=== PATIENT | female | born 1995 | race Two or more races ===

== ENCOUNTER 2024-01-07 22:27 | Emergency (ER) | payer OTHER ==
[~2024-01-07] VITALS: Ht 152.4 cm; Wt 60.0 kg
[2024-01-08 00:49] LABS: Urine Bacteria NONE SEEN /hpf (None Seen); Urine Blood Negative /uL (Negative); Urine Clarity Clear (Clear); Urine Color Yellow (Yellow); Urine Protein, UAD Negative (Negative); Urine Urobilinogen Normal (Negative); Urine WBC 1 /hpf (0 - 5)
[2024-01-08] MEDS: ACETAMINOPHEN 325 MG TAB PO ONE (00:52)
[2024-01-08 00:55] VITALS: BP 107/70; PULSE 73; RESP 17; O2SAT 99
[2024-01-08] MEDS ORDERED: ACET500T58 PO (00:56)
[2024-01-08 01:38] LABS: Amphetamine Screen, Urine Neg (NEGATIVE); Barbiturate Scree,Urine Neg (NEGATIVE); Benzodiazephine Screen, Urine Neg (NEGATIVE); Cannabinoid Screen, Urine Pos (NEGATIVE); Cocaine Screen, Urine Neg (NEGATIVE); Opiate Scree,Urine Neg (NEGATIVE); Phencyclidine Screen, Urine Neg (NEGATIVE)
== END 2024-01-08 01:59 | disposition home or self-care (01) ==
LOC: ER 22:27
DX: O26.891 Other specified pregnancy related conditions, first trimester (principal); G44.209 Tension-type headache, unspecified, not intractable; F12.10 Cannabis abuse, uncomplicated; Z3A.10 10 weeks gestation of pregnancy; Z79.899 Other long term (current) drug therapy
CPT/HCPCS: 80307; 81001; 81025

== ENCOUNTER 2024-03-25 16:05 | Observation (INO) | payer MEDICAID ==
[~2024-03-25 16:05] MED LIST: ACET500T58 PO
== END 2024-03-25 18:02 | disposition home or self-care (01) ==
LOC: UNDOADMOB 16:05 → LDRP 16:05 → UNDODISOB 18:02
PROVIDERS: ADMIT Obstetrics & Gynecology; ATTEND Obstetrics & Gynecology
DX: O26.852 Spotting complicating pregnancy, second trimester (principal); O46.92 Antepartum hemorrhage, unspecified, second trimester; Z3A.20 20 weeks gestation of pregnancy
CPT/HCPCS: 76805; 81002; 94760; G0378

== ENCOUNTER 2024-04-10 19:53 | Observation (INO) | payer MEDICAID ==
[~2024-04-10] VITALS: Ht 152.4 cm; Wt 61.2 kg
[2024-04-10] MEDS ORDERED: PREN-96 PO (20:51)
== END 2024-04-10 21:41 | disposition home or self-care (01) ==
LOC: LDRP 19:53
PROVIDERS: ADMIT Obstetrics & Gynecology; ATTEND Obstetrics & Gynecology
DX: O99.612 Diseases of the digestive system complicating pregnancy, second trimester (principal); K42.9 Umbilical hernia without obstruction or gangrene; Z3A.23 23 weeks gestation of pregnancy
CPT/HCPCS: 59025; 81002; 94760; G0378

== ENCOUNTER 2024-07-28 11:39 | Observation (INO) | payer MEDICAID ==
[~2024-07-28 11:39] MED LIST changes: +PREN-96 PO
== END 2024-07-28 13:50 | disposition home or self-care (01) ==
LOC: LDRP 11:39
PROVIDERS: ADMIT Obstetrics & Gynecology; ATTEND Obstetrics & Gynecology
DX: O48.0 Post-term pregnancy (principal); Z3A.38 38 weeks gestation of pregnancy; Z79.899 Other long term (current) drug therapy
CPT/HCPCS: 59025; 81002; G0378

== ENCOUNTER 2024-08-06 10:59 | Observation (INO) | payer MEDICAID ==
[2024-08-06 13:36] LABS: Fern Testing Negative
== END 2024-08-06 15:24 | disposition home or self-care (01) ==
LOC: LDRP 10:59 → UNDOADMOB 10:59 → LDRP 11:09
PROVIDERS: ADMIT Obstetrics & Gynecology; ATTEND Obstetrics & Gynecology
DX: O60.03 Preterm labor without delivery, third trimester (principal); Z3A.39 39 weeks gestation of pregnancy; Z79.899 Other long term (current) drug therapy
CPT/HCPCS: 59025; 76818; 81002; 84112; 94760; 96360; G0378; Q0114

== ENCOUNTER 2024-08-08 07:45 | Inpatient (IN) | payer MEDICAID ==
[~2024-08-08] VITALS: Ht 152.4 cm; Wt 65.8 kg
[2024-08-08] MEDS ORDERED: LIDOCAINE 2%HCL (LOCAL ANESTH.) INJ 20ML MDV IJ PRN (09:45)
[2024-08-08] MEDS ORDERED: BUTORPHANOL TARTRATE 2 MG/1 ML VIAL IV PRN ×2 (09:45)
[2024-08-08] MEDS ORDERED: LACT. RINGERS/OXYTOCIN 20UNITS 500 ML IV ONE (10:15)
[2024-08-08 11:16] LABS: Basophils # (auto) 0 10 ^3/uL (0-0.2); Basophils % (auto) 0.6 % (0.0-2.0); Eosinophils # (auto) 0.1 10 ^3/uL (0-0.8); Eosinophils % (auto) 1.3 % (0.0-7.0); Hemoglobin 9.9 g/dL (12.2-16.2); Lymphocytes # (auto) 1.9 10 ^3/uL (0.4-5.4); Mean Corpuscular Hemoglobin 28.3 pg (28.0-32.0); Mean Corpuscular Volume 85.8 fL (80.0-100.0); Monocytes # (auto) 0.6 10 ^3/uL (0-1.3); Monocytes % (auto) 7.8 % (0.0-12.0); Neutrophils # (auto) 4.8 10 ^3/uL (1.6-8.6); Neutrophils % (auto) 64.3 % (37.0-80.0); Platelet Count (auto) 302 10^3/uL (140-450); White Blood Cell 7.5 10^3/uL (4.4-10.8)
[2024-08-08 11:33] LABS: Amphetamine Screen, Urine Neg (NEGATIVE)
[2024-08-08 11:34] LABS: Barbiturate Scree,Urine Neg (NEGATIVE); Benzodiazephine Screen, Urine Neg (NEGATIVE); Cannabinoid Screen, Urine Neg (NEGATIVE); Cocaine Screen, Urine Neg (NEGATIVE); Opiate Scree,Urine Neg (NEGATIVE); Phencyclidine Screen, Urine Neg (NEGATIVE)
[2024-08-08 11:36] LABS: Albumin 3.5 g/dL (3.2-4.8); Alkaline Phosphatase 123 U/L (46-116); Anion Gap 9 (5-15); Aspartate Aminotransferase 12 U/L (13-40); Bilirubin, Total 0.5 mg/dL (0.2-1.0); Calcium 8.7 mg/dL (8.7-10.4); Carbon Dioxide 21 mmol/L (20-31); Chloride 110 mmol/L (98-107); Glucose 100 mg/dL (74-106); INR 0.99 (0.9-1.15); Partial Thromboplastin Time 27.1 SEC (24.5-34.5); Potassium 3.3 mmol/L (3.5-5.1); Prothrombin Time 10.5 sec (9.3-11.8); Sodium 140 mmol/L (136-145); Total Protein 6.2 g/dL (5.7-8.2)
[2024-08-08 11:37] LABS: Alanine Aminotransferase < 9 U/L (7-40); BUN/Creatinine Ratio 7.4 (10.0-20.0); Blood Urea Nitrogen < 5 mg/dL (9-23)
[2024-08-08 11:45] LABS: Urine Bacteria FEW /hpf (None Seen); Urine Blood Negative /uL (Negative); Urine Clarity Clear (Clear); Urine Color Light-Yellow (Yellow); Urine Protein, UAD Negative (Negative); Urine Specific Gravity 1.006 (1.001-1.035); Urine Urobilinogen Normal (Negative); Urine WBC 2 /hpf (0 - 5)
[2024-08-08] MEDS: miSOPROStol 50 MCG per PRE-CUT 1/2 TAB PO PRN (12:01)
[2024-08-08] MEDS: CLINDAMYCIN 600MG IV 50 ML IV SCH (12:52)
[2024-08-08] MEDS: LACTATED RINGER'S 1,000 ML IV SCH (15:08)
[2024-08-08] MEDS: POTASSIUM CHL 20 Meq TABLET PO ONE (15:12)
[2024-08-08] MEDS: PHISODERM TOP SOLN 240ML BTL TOP PRN (15:12)
[2024-08-08] MEDS: DERMOPLAST 60ML BOTTLE TOP PRN (15:12)
[2024-08-08] MEDS: WITCH HAZEL-GLYCERIN PAD TOP PRN (15:12)
[2024-08-08] MEDS: fentaNYL CITRATE 100 MCG/2 ML VL IV ONE ×2 (17:00→18:17)
[2024-08-08] MEDS: NALOXONE HCL 0.4 MG/ML VIAL IV ONE (17:00)
[2024-08-08] MEDS ORDERED: ePHEDrine SULFATE 50 MG/ML AMP IV ONE (17:00)
[2024-08-08] MEDS: LIDOCAINE HCL 2 %PF INJ 10ML AMP IJ ONE ×2 (17:15→17:45)
[2024-08-08] MEDS ORDERED: LACT. RINGERS/OXYTOCIN 20UNITS 1,000 ML IV SCH (17:30)
[2024-08-08] MEDS ORDERED: NALOXONE HCL 0.4 MG/ML VIAL IV ONE (17:45)
[2024-08-08] MEDS: ePHEDrine SULFATE 50 MG/ML AMP IV ONE (17:45)
[2024-08-08] MEDS ORDERED: ROPIVACAINE HCL 200 ML ONE (18:05)
[2024-08-08] MEDS: ROPIVACAINE HCL 200 ML EPI ONE (18:41)
[2024-08-08] MEDS ORDERED: diphenhdrAMINE HCL 50 MG/1 ML VL IV PRN (19:15)
[2024-08-08] MEDS ORDERED: CARBOPROST TROMETHAMINE 250 MCG/1ML VIAL IM PRN (22:00)
[2024-08-08] MEDS ORDERED: miSOPROStol 100 mcg TAB SL PRN (22:00)
[2024-08-08] MEDS ORDERED: TRANEXAMIC ACID 1,000 MG in SODIUM CHL 0.9% 100 ML IV ONE (22:00)
[2024-08-08] MEDS ORDERED: miSOPROStol 100 mcg TAB PR PRN (22:00)
[2024-08-08] MEDS ORDERED: METHYLERGONOVINE MALEATE 0.2 MG/ML AMP IM PRN (22:00)
[2024-08-08] MEDS ORDERED: DIPHENOXYLATE W/ATROPINE 2.5 MG TAB PO SCH (22:00)
[2024-08-09] MEDS: IBUPROFEN 800 MG TAB PO SCH
[2024-08-09] MEDS: LACT. RINGERS/OXYTOCIN 20UNITS 500 ML IV ONE (00:29)
[2024-08-09 03:00] VITALS: BP 113/70; PULSE 80; RESP 16; TEMP 98.6; O2SAT 98
[2024-08-09] MEDS ORDERED: ACETAMINOPHEN 325 MG TAB PO PRN (03:00)
[2024-08-09] MEDS ORDERED: ONDANSETRON ODT 4 MG TAB PO PRN (03:00)
[2024-08-09] MEDS ORDERED: LIDOCAINE 2%HCL (LOCAL ANESTH.) INJ 10ml MDV ONE (06:42)
[2024-08-09] MEDS ORDERED: LACT. RINGERS/OXYTOCIN 20UNITS 0 ML IV ONE (06:42)
[2024-08-09 07:00] VITALS: BP 95/55; PULSE 67; RESP 18; TEMP 97.8; O2SAT 100
[2024-08-09 07:07] LABS: RPR Non Reactive (Non Reactive)
[2024-08-09 11:30] VITALS: BP 92/54; PULSE 73; RESP 16; TEMP 97.7; O2SAT 99
[2024-08-09 15:30] VITALS: BP 103/61; PULSE 60; RESP 16; TEMP 98.3; O2SAT 99
[2024-08-09 19:00] VITALS: BP 99/51; PULSE 82; RESP 16; TEMP 98.3; O2SAT 98
[2024-08-09 23:21] VITALS: BP 103/65; PULSE 75; RESP 16; TEMP 98.6; O2SAT 98
[2024-08-10 03:00] VITALS: BP 96/56; PULSE 75; RESP 16; TEMP 98.1; O2SAT 97
[2024-08-10 07:00] VITALS: BP 102/62; PULSE 84; RESP 18; TEMP 98.2; O2SAT 98
[2024-08-10 11:03] VITALS: BP 102/61; PULSE 74; RESP 18; TEMP 98.6; O2SAT 98
[2024-08-10 15:00] VITALS: BP 100/64; PULSE 72; RESP 18; TEMP 98; O2SAT 98
[2024-08-10 19:00] VITALS: BP 102/64; PULSE 73; RESP 16; TEMP 97.7; O2SAT 98
[2024-08-10 23:00] VITALS: BP 97/52; PULSE 61; RESP 16; TEMP 98; O2SAT 100
[2024-08-11 03:00] VITALS: BP 102/61; PULSE 69; RESP 16; TEMP 98.5; O2SAT 98
[2024-08-11 07:02] VITALS: BP 101/61; PULSE 67; RESP 15; TEMP 98.8; O2SAT 97
[2024-08-11 11:06] LABS: Treponema Pallidum Ab LC Non Reactive (Non Reactive)
== END 2024-08-11 12:00 | disposition home or self-care (01) | DRG 560 ==
LOC: LDRP 07:45 → OBSVTOIN 09:42 → LDRP 11:00
PROVIDERS: ADMIT Obstetrics & Gynecology; ATTEND Obstetrics & Gynecology
PROC: 10E0XZZ Delivery of Products of Conception, External Approach (ICD-10-PCS; principal; 2024-08-09)
PROC: 3E0R3BZ Introduction of Anesthetic Agent into Spinal Canal, Percutaneous Approach (ICD-10-PCS; 2024-08-09)
PROC: 00HU33Z Insertion of Infusion Device into Spinal Canal, Percutaneous Approach (ICD-10-PCS; 2024-08-09)
PROC: 3E0DXGC Introduction of Other Therapeutic Substance into Mouth and Pharynx, External Approach (ICD-10-PCS; 2024-08-09)
DX: O48.0 Post-term pregnancy (principal); Z37.0 Single live birth; O69.81X0 Labor and delivery complicated by cord around neck, without compression, not applicable or unspecified; Z3A.40 40 weeks gestation of pregnancy; Z88.0 Allergy status to penicillin; O90.81 Anemia of the puerperium
CPT/HCPCS: 36415; 59025; 59409; 62282; 76818; 80053; 80307; 81001; 81002; 85025; 85610; 85730; 86592; 86780; 86803; 86850; 86900; 86901; 94760; 96360; 96361; 96365; 96366; G0378; J2003; J2590; J3490

== ENCOUNTER 2025-03-18 06:20 | Day surgery (SDC) | payer MEDICAID ==
[2025-03-16 12:16] LABS: Basophils # (auto) 0.1 10 ^3/uL (0-0.2); Eosinophils # (auto) 0.1 10 ^3/uL (0-0.8); Eosinophils % (auto) 2.1 % (0.0-7.0); Hemoglobin 13.4 g/dL (12.2-16.2); Lymphocytes # (auto) 2.3 10 ^3/uL (0.4-5.4); Lymphocytes % (auto) 32.5 % (10.0-50.0); Mean Corpuscular Hemoglobin 30.5 pg (28.0-32.0); Mean Corpuscular Hgb Conc. 33.6 g/dL (32.0-36.0); Mean Corpuscular Volume 90.9 fL (80.0-100.0); Monocytes # (auto) 0.7 10 ^3/uL (0-1.3); Monocytes % (auto) 9.4 % (0.0-12.0); Neutrophils # (auto) 3.9 10 ^3/uL (1.6-8.6); Nucleated Red Blood Cells % 0.1 %; Platelet Count (auto) 349 10^3/uL (140-450); Red Cell Distribution Width 13.4 % (11.8-14.3); White Blood Cell 7.1 10^3/uL (4.4-10.8)
[2025-03-16 12:29] LABS: INR 1.01 (0.9-1.15); Partial Thromboplastin Time 30.4 SEC (24.5-34.5); Prothrombin Time 10.7 sec (9.3-11.8)
[2025-03-16 12:44] LABS: Alanine Aminotransferase 24 U/L (7-40); Albumin 4.7 g/dL (3.2-4.8); Alkaline Phosphatase 78 U/L (46-116); Anion Gap 8 (5-15); Aspartate Aminotransferase 22 U/L (13-40); BUN/Creatinine Ratio 11.3 (10.0-20.0); Bilirubin, Total 0.7 mg/dL (0.2-1.0); Blood Urea Nitrogen 8 mg/dL (9-23); Calcium 9.8 mg/dL (8.7-10.4); Carbon Dioxide 25 mmol/L (20-31); Chloride 103 mmol/L (98-107); Glucose 96 mg/dL (74-106); Potassium 3.9 mmol/L (3.5-5.1); Sodium 136 mmol/L (136-145); Total Protein 7.7 g/dL (5.7-8.2)
[~2025-03-18] VITALS: Ht 152.4 cm; Wt 65.8 kg
[2025-03-18] MEDS ORDERED: CELECOXIB 100 MG CAP ONE (06:45)
[2025-03-18] MEDS ORDERED: GABAPENTIN 300 MG CAP ONE (06:45)
[2025-03-18] MEDS ORDERED: GLYCOPYRROLATE 0.2 MG/ML 1ML VIAL ONE (06:51)
[2025-03-18] MEDS ORDERED: PROPOFOL 10 MG/ML 20 ML IV ONE (06:51)
[2025-03-18] MEDS ORDERED: ROCURONIUM 10MG/ML 10ML VIAL IV ONE (06:51)
[2025-03-18] MEDS ORDERED: DexAMETHasone SOD PHOS 10MG/1ML VIAL INJ ONE (06:52)
[2025-03-18] MEDS ORDERED: KETOROLAC TROMETH 30 MG/ML 1ML VIAL ONE (06:52)
[2025-03-18] MEDS ORDERED: LIDOCAINE 1% INJ PF 5ML AMP ONE (06:52)
[2025-03-18] MEDS ORDERED: LIDOCAINE HCL 2% TOP JELLY 5ML TOP ONE (06:52)
[2025-03-18] MEDS ORDERED: SUGAMMADEX 200mg/2ml Vial (100MG/ML) IV ONE (06:52)
[2025-03-18] MEDS ORDERED: ONDANSETRON HCL 4 MG/2 ML VIAL ONE (06:52)
[2025-03-18] MEDS ORDERED: LIDOCAINE 2% (LOCAL ANESTH.) PF 5ml SDV ONE (06:52)
[2025-03-18] MEDS ORDERED: fentaNYL CITRATE 100 MCG/2 ML VL ONE (06:54)
[2025-03-18] MEDS ORDERED: KETAMINE 50mg/ML 1ml syringe ONE (06:54)
[2025-03-18] MEDS: GABAPENTIN 300 MG CAP PO ONE (07:00)
[2025-03-18] MEDS: CELECOXIB 100 MG CAP PO ONE (07:00)
[2025-03-18] MEDS: ACETAMINOPHEN IV 1000 MG/100ML (10MG/ML) IV ONE (07:00)
[2025-03-18] MEDS: ACETAMINOPHEN IV 100 ML IV ONE (07:20)
[2025-03-18] MEDS: levoFLOXacin 500MG 100 ML IV ONE (07:23)
[2025-03-18] MEDS ORDERED: PHENYLEPHRINE HCL 10 MG/ML VL ONE (07:39)
[2025-03-18] MEDS ORDERED: SODIUM CHLORIDE LOCK 10 ML ONE (07:39)
[2025-03-18] MEDS: BUPIVACAINE 0.25% INJ 50ML VIAL ONE (07:48)
[2025-03-18] MEDS: LIDOCAINE W/ EPINEPHRINE 1% 20ML VIAL ONE (07:48)
[2025-03-18 08:20] VITALS: PULSE 125; RESP 13; TEMP 98.5; O2SAT 100
[2025-03-18] MEDS ORDERED: fentaNYL CITRATE 100 MCG/2 ML VL IV PRN (08:30)
[2025-03-18] MEDS ORDERED: HYDROmorphone HCL 2 MG/ML VL/or syr IV PRN (08:30)
[2025-03-18] MEDS ORDERED: NALOXONE HCL 0.4 MG/ML VIAL IV PRN (08:30)
[2025-03-18] MEDS ORDERED: ePHEDrine SULFATE 50 MG/ML AMP IV PRN (08:30)
[2025-03-18] MEDS ORDERED: FLUMAZENIL 0.1 MG/ML INJ 10ML MDV IV PRN (08:30)
[2025-03-18] MEDS ORDERED: hydrALAZINE HCL 20 MG/ML VL IV PRN (08:30)
[2025-03-18] MEDS: ONDANSETRON HCL 4 MG/2 ML VIAL IV PRN (09:22)
[2025-03-18] MEDS: oxyCODONE HCL 5MG TAB PO PRN (09:23)
[2025-03-18 09:35] VITALS: BP 110/72; PULSE 73; RESP 13; O2SAT 97
--- NOTE | 2025-03-18 09:52 | DVHOP ---
DATE OF SURGERY: 03/18/2025 PREOPERATIVE DIAGNOSIS: Umbilical hernia. POSTOPERATIVE DIAGNOSIS: Umbilical hernia. SURGEON: Derrick Daly MD. ANESTHESIA: General. ANESTHESIOLOGIST: Carson Gonzalez. PROCEDURE: Repair of umbilical hernia. DESCRIPTION OF PROCEDURE: Under adequate anesthesia, with the patient's skin prepped and draped, infiltrated with 0.25% Marcaine, 0.5% Xylocaine with epinephrine mixture, an incision was made in a circumumbilical fashion, deepened with electrocautery. The hernia consisted of incarcerated omentum, which was mobilized sufficiently in order to reduce it into the peritoneal cavity and the fascia was under swept with a dissecting finger to minimize the potential for any injury to the underlying viscera. The fascial defect, which measured approximately 3 cm in diameter, was then closed using nonabsorbable sutures in a far-near, near-far fashion. Incision was irrigated. Irrigant was aspirated. Hemostasis was meticulously accomplished and closure accomplished utilizing 2-0 Monocryl sutures, Dermabond, glue and Steri-Strips. The patient remained stable throughout the procedure, left the operating room following an accurate needle and sponge count. Derrick Daly MD PF/EMILEE/LYLE TID: [id number] RECEIPT: [id number]
== END 2025-03-18 09:50 | disposition home or self-care (01) ==
LOC: SUR 06:20
PROVIDERS: ATTEND Surgery
DX: K42.0 Umbilical hernia with obstruction, without gangrene (principal); E66.3 Overweight; Z68.28 Body mass index [BMI] 28.0-28.9, adult; Z79.899 Other long term (current) drug therapy; Z87.891 Personal history of nicotine dependence; Z88.0 Allergy status to penicillin
CPT/HCPCS: 36415; 49594; 80053; 84702; 85025; 85610; 85730; 86850; 86900; 86901; 88302; J1100; J1885; J1956; J2003; J2371; J2405; J2704; J0131; J3490